=== PATIENT | female | born 1995 ===

== ENCOUNTER 2018-09-27 16:34 | Emergency (ER) | payer OTHER, SELFPAY ==
[2018-09-27 17:01] VITALS: PULSE 89; RESP 12; O2SAT 98
[2018-09-27] MEDS: ALBUTEROL/IPRATROPIUM 3 ML AMPUL INH (17:01)
[2018-09-27 17:02] VITALS: BP 110/65; PULSE 94; RESP 24; TEMP 37.3; O2SAT 96; BMI 25.7
--- NOTE | 2018-09-27 17:04 | PC.NURSE ---
breath sound with ins/exp wheezes. skin warm dry pink
[2018-09-27] MEDS: ALBUTEROL 2.5 MG/3 ML NEB (ADULT) INH ×3 (17:13→17:33)
[2018-09-27 17:33] VITALS: PULSE 105; RESP 14; O2SAT 98
--- NOTE | 2018-09-27 17:34 | DI.RAD.S_ITS ---
PROCEDURE: XR CHEST 2V INDICATIONS: Cough, SOB TECHNIQUE: 2 views of the chest were acquired. COMPARISON: None. FINDINGS: Surgical changes and devices: None. Lungs and pleura: No pleural effusions or pneumothorax. Central interstitial prominence is seen. No consolidated infiltrates are seen. Mediastinum: Mediastinal contours are normal. Heart size is normal. Bones and chest wall: No suspicious bony abnormalities. Mild dextroconvex scoliotic curvature is seen. Soft tissues appear unremarkable. IMPRESSION: Interstitial prominence is seen throughout. The interstitial prominence is nonspecific, yet may be related to pulmonary edema, asthma, or atypical infiltrates. Dictated by: Oliver Rivero M.D. on 09/27/2018 at 17:03 Approved by: Oliver Rivero M.D. on 09/27/2018 at 17:04
--- NOTE | 2018-09-27 17:37 | ED_ITS ---
HPI - URI/Sore Throat <Kate Calderón PA-C - Last Filed: 09/27/18 22:06> General Chief Complaint: Upper Respiratory Symptoms Stated Complaint: HARD TIME BREATHING Time Seen by Provider: 09/27/18 17:36 Source: patient Mode of arrival: ambulatory Limitations: no limitations History of Present Illness HPI Narrative: This generally healthy 23-year-old female has had cold and cough symptoms that started 6-8 weeks ago. She states that she had congestion and dry cough that has been waxing and waning since then, thought it would get better on its own. She states that she has had some intermittent difficulty breathing, which she describes as it being hard to inhaler take a deep breath and feeling like it would make her cough. She has had some slight chest pain at times, none currently. She states that she was walking in a small area at work today and felt short of breath and started wheezing. She did not want to come in but her partner brought her. She states that she had some chills earlier on but none today. No known fever. She states that her back feels somewhat sore at times since this started. She has had increased fatigue and less appetite. She denies any abdominal symptoms, new pain or swelling in her extremities, or other new complaints. She states that she did have an episode of exercise-induced asthma 6 or 7 years ago but has not had problems with that since. She denies any recent travel. Coworkers have been sick but got better since onset of her symptoms. She states that she is feeling better after nebulizer treatment Related Data Previous Rx's Medication Instructions Recorded azithromycin 250 mg PO DAILY 4 Days tab 09/27/18 prednisone 20 mg PO DAILY #8 tab 09/27/18 Allergies Allergy/AdvReac Type Severity Reaction Status Date / Time No Known Drug Allergies Allergy Verified 09/27/18 17:36 Review of Systems <Kate Calderón PA-C - Last Filed: 09/27/18 22:06> Review of Systems All systems reviewed & are unremarkable except as noted in HPI and below PFSH <Kate Calderón PA-C - Last Filed: 09/27/18 22:06> Comment: Rare EtOH, no street drugs Exam <CLARK Mathur Last Filed: 09/27/18 22:06> Narrative Exam Narrative: GENERAL APPEARANCE: Patient sitting comfortably, in no distress. HEAD: No sinus TTP. EYES: PERRL, EOMI. EARS: Normal auditory canals, TMS intact with normal light reflexes. ORAL CAVITY: Normal oropharynx. THROAT: Clear. NECK/THYROID: Neck supple, full range of motion, few small anterior cervical nodes LUNGS: Congested breath sounds with generalized wheeze, no cough on exam. HEART: RRR without murmur, nl S1, S2, no S3 or S4. EXTREMITIES: No cyanosis, no edema, no calf tenderness Initial Vital Signs Initial Vital Signs: Vital Signs Pulse Rate 89 09/27/18 17:01 Respiratory Rate 12 09/27/18 17:01 Pulse Oximetry 98 09/27/18 17:01 <Tyshawn Mohr DO - Last Filed: 09/28/18 14:57> Initial Vital Signs Initial Vital Signs: Vital Signs Pulse Rate 89 09/27/18 17:01 Respiratory Rate 12 09/27/18 17:01 Pulse Oximetry 98 09/27/18 17:01 Course <Kate Calderón PA-C - Last Filed: 09/27/18 22:06> Additional Information: Patient still has wheeze after nebulizer treatments but is moving air and feels subjectively improved. Findings most consistent with atypical pneumonia. Reviewed with Dr. Mohr as her lactase is a bit elevated as well. Agrees outpatient treatment is reasonable given that she is a healthy young nonsmoker. Initial doses of medication given tonight and she will continue these tomorrow. Remain off of work and reassess in a few days to determine whether to continue any steroids. She agreed to return again if any acutely worsening symptoms Orders Ordered: Discontinued Medications Albuterol (Ventolin) 2.5 mg INH NOW PRN PRN Reason: Wheezing Last Admin: 09/27/18 17:33 Dose: 2.5 mg Admin: 09/27/18 17:25 Dose: 2.5 mg Admin: 09/27/18 17:13 Dose: 2.5 mg Albuterol/Ipratropium (Duoneb) 3 ml INH NOW ONE Stop: 09/27/18 17:00 Last Admin: 09/27/18 17:01 Dose: 3 ml Azithromycin (Zithromax) 500 mg PO NOW ONE Stop: 09/27/18 19:42 Last Admin: 09/27/18 19:46 Dose: 500 mg Prednisone (Deltasone) 40 mg PO NOW ONE Stop: 09/27/18 18:55 Last Admin: 09/27/18 19:00 Dose: 40 mg Vital Signs - 8 hr 09/27/18 17:01 09/27/18 17:02 09/27/18 17:33 Temperature 99.2 F Pulse Rate 89 94 H 105 H Respiratory Rate 12 24 14 Blood Pressure 110/65 Blood Pressure [Left Arm] Pulse Oximetry 98 96 98 09/27/18 19:33 Temperature Pulse Rate 108 H Respiratory Rate 15 Blood Pressure Blood Pressure [Left Arm] 106/65 Pulse Oximetry 98 <Tysahwn Mohr DO - Last Filed: 09/28/18 14:57> Orders Ordered: Discontinued Medications Albuterol (Ventolin) 2.5 mg INH NOW PRN PRN Reason: Wheezing Last Admin: 09/27/18 17:33 Dose: 2.5 mg Admin: 09/27/18 17:25 Dose: 2.5 mg Admin: 09/27/18 17:13 Dose: 2.5 mg Albuterol/Ipratropium (Duoneb) 3 ml INH NOW ONE Stop: 09/27/18 17:00 Last Admin: 09/27/18 17:01 Dose: 3 ml Azithromycin (Zithromax) 500 mg PO NOW ONE Stop: 09/27/18 19:42 Last Admin: 09/27/18 19:46 Dose: 500 mg Prednisone (Deltasone) 40 mg PO NOW ONE Stop: 09/27/18 18:55 Last Admin: 09/27/18 19:00 Dose: 40 mg Vital Signs - 8 hr 09/27/18 17:01 09/27/18 17:02 09/27/18 17:33 Temperature 99.2 F Pulse Rate 89 94 H 105 H Respiratory Rate 12 24 14 Blood Pressure 110/65 Blood Pressure [Left Arm] Pulse Oximetry 98 96 98 09/27/18 19:33 Temperature Pulse Rate 108 H Respiratory Rate 15 Blood Pressure Blood Pressure [Left Arm] 106/65 Pulse Oximetry 98 MDM - URI/Sore Throat <Kate Calderón PA-C - Last Filed: 09/27/18 22:06> Lab Data Attestation: I reviewed the patient's lab results. Result diagrams: 09/27/18 18:25 09/27/18 18:25 Lab Results 09/27/18 09/27/18 09/27/18 Range/Units 18:25 18:25 18:25 WBC 15.1 H (4.5-11.0) X10^3/uL RBC 4.46 (4.0-5.2) X10^6/uL Hgb 12.9 (12.0-16.0) g/dL Hct 37.8 (36-46) % MCV 84.8 (80-100) fL MCH 28.8 (26-34) PG MCHC 34.0 (30-36) % RDW 13.1 (11.6-14.8) % Plt Count 252 (150-400) X10^3/uL Neut % (Auto) 73.3 (50-75) % Lymph % (Auto) 14.8 L (25-40) % [place] % (Auto) 6.1 (3-14) % Eos % (Auto) 5.4 H (2-4) % Baso % (Auto) 0.4 (0-2) % Neut # (Auto) 37743 H (2513-4848) /uL D-Dimer < 200 (<230) ng/mL Sodium 143 (137-145) mmol/L Potassium 3.6 (3.4-5.1) mmol/L Chloride 107 (98-107) mmol/L Carbon Dioxide 23 (22-32) mmol/L BUN 12 (7-17) mg/dL Creatinine 0.60 (0.52-1.04) mg/dL Estimated GFR > 60.0 (>60) mL/min BUN/Creatinine Ratio 20.0 (6-22) Glucose 111 H (70-100) mg/dL Lactate (0.7-2.1) mmol/L Calcium 8.5 (8.4-10.2) mg/dL B-Natriuretic Peptide (<100) 09/27/18 09/27/18 Range/Units 18:25 18:25 WBC (4.5-11.0) X10^3/uL RBC (4.0-5.2) X10^6/uL Hgb (12.0-16.0) g/dL Hct (36-46) % MCV (80-100) fL MCH (26-34) PG MCHC (30-36) % RDW (11.6-14.8) % Plt Count (150-400) X10^3/uL Neut % (Auto) (50-75) % Lymph % (Auto) (25-40) % [place] % (Auto) (3-14) % Eos % (Auto) (2-4) % Baso % (Auto) (0-2) % Neut # (Auto) (6433-8233) /uL D-Dimer (<230) ng/mL Sodium (137-145) mmol/L Potassium (3.4-5.1) mmol/L Chloride (98-107) mmol/L Carbon Dioxide (22-32) mmol/L BUN (7-17) mg/dL Creatinine (0.52-1.04) mg/dL Estimated GFR (>60) mL/min BUN/Creatinine Ratio (6-22) Glucose (70-100) mg/dL Lactate 2.4 H (0.7-2.1) mmol/L Calcium (8.4-10.2) mg/dL B-Natriuretic Peptide < 100.0 (<100) Imaging Data Chest x-ray: Radiologist's impression: [place] [address] XRay Report Signed Patient: ZONIA MENSAH [facility]#: [id number] : 1995Acct:[id number] Age/Sex: 23 / FDate of Service: 09/27/18 Loc: ED Accession Number: [id number] Procedure: XR chest 2V Ordering Provider: Kate Calderón P.A-C PROCEDURE: XR CHEST 2V INDICATIONS: Cough, SOB TECHNIQUE: 2 views of the chest were acquired. COMPARISON: None. FINDINGS: Surgical changes and devices: None. Lungs and pleura: No pleural effusions or pneumothorax. Central interstitial prominence is seen. No consolidated infiltrates are seen. Mediastinum: Mediastinal contours are normal. Heart size is normal. Bones and chest wall: No suspicious bony abnormalities. Mild dextroconvex scoliotic curvature is seen. Soft tissues appear unremarkable. IMPRESSION: Interstitial prominence is seen throughout. The interstitial prominence is nonspecific, yet may be related to pulmonary edema, asthma, or atypical infiltrates. Dictated by: Oliver Rivero M.D. on 09/27/2018 at 17:03 Approved by: Oliver Rivero M.D. on 09/27/2018 at 17:04 <Tyshawn Mohr DO - Last Filed: 09/28/18 14:57> Lab Data Lab Results 09/27/18 09/27/18 09/27/18 Range/Units 18:25 18:25 18:25 WBC 15.1 H (4.5-11.0) X10^3/uL RBC 4.46 (4.0-5.2) X10^6/uL Hgb 12.9 (12.0-16.0) g/dL Hct 37.8 (36-46) % MCV 84.8 (80-100) fL MCH 28.8 (26-34) PG MCHC 34.0 (30-36) % RDW 13.1 (11.6-14.8) % Plt Count 252 (150-400) X10^3/uL Neut % (Auto) 73.3 (50-75) % Lymph % (Auto) 14.8 L (25-40) % [place] % (Auto) 6.1 (3-14) % Eos % (Auto) 5.4 H (2-4) % Baso % (Auto) 0.4 (0-2) % Neut # (Auto) 04329 H (8348-5135) /uL D-Dimer < 200 (<230) ng/mL Sodium 143 (137-145) mmol/L Potassium 3.6 (3.4-5.1) mmol/L Chloride 107 (98-107) mmol/L Carbon Dioxide 23 (22-32) mmol/L BUN 12 (7-17) mg/dL Creatinine 0.60 (0.52-1.04) mg/dL Estimated GFR > 60.0 (>60) mL/min BUN/Creatinine Ratio 20.0 (6-22) Glucose 111 H (70-100) mg/dL Lactate (0.7-2.1) mmol/L Calcium 8.5 (8.4-10.2) mg/dL B-Natriuretic Peptide (<100) 09/27/18 09/27/18 Range/Units 18:25 18:25 WBC (4.5-11.0) X10^3/uL RBC (4.0-5.2) X10^6/uL Hgb (12.0-16.0) g/dL Hct (36-46) % MCV (80-100) fL MCH (26-34) PG MCHC (30-36) % RDW (11.6-14.8) % Plt Count (150-400) X10^3/uL Neut % (Auto) (50-75) % Lymph % (Auto) (25-40) % [place] % (Auto) (3-14) % Eos % (Auto) (2-4) % Baso % (Auto) (0-2) % Neut # (Auto) (0024-2595) /uL D-Dimer (<230) ng/mL Sodium (137-145) mmol/L Potassium (3.4-5.1) mmol/L Chloride (98-107) mmol/L Carbon Dioxide (22-32) mmol/L BUN (7-17) mg/dL Creatinine (0.52-1.04) mg/dL Estimated GFR (>60) mL/min BUN/Creatinine Ratio (6-22) Glucose (70-100) mg/dL Lactate 2.4 H (0.7-2.1) mmol/L Calcium (8.4-10.2) mg/dL B-Natriuretic Peptide < 100.0 (<100) Discharge Plan Departure Patient Disposition: Home Clinical Impression: Atypical pneumonia, Asthma Discharge Date/Time: 09/27/18 19:55 Interventions: ED Discharge Assessment Last Done: 09/27/18 19:55 Instructions: DI for Atypical Pneumonia Activity Restrictions/Additional Instructions: Please return as we talked about if you have acutely worsening symptoms. Please use your inhaler as often as needed. Take your 2nd dose of steroids and antibiotics tomorrow and continue these over the weekend. Follow up with your primary care provider on Monday to assess your progress and determine whether you need to continue steroids. Remain off of work until then. Prescriptions: New azithromycin 250 mg tablet 250 mg PO DAILY 4 Days RF: 0 prednisone 20 mg tablet 20 mg PO DAILY Qty: 8 RF: 0 Referrals: [facility] [Provider Group] Stand Alone Forms: Work/School Restrictions <Tyshawn Mohr DO - Last Filed: 09/28/18 14:57> Cosign ED Attending Madanature Attestation: I was immediately available in the department for consultation. Documentation has been reviewed. I agree with assessment and plan.
[2018-09-27 18:36] LABS: Add Manual Diff / Slide Review NO; Basophils Percent Auto 0.4 % (0-2); Eosinophils Percent Auto 5.4 % (2-4); Hematocrit 37.8 % (36-46); Hemoglobin 12.9 g/dL (12.0-16.0); Lymphocytes Percent Auto 14.8 % (25-40); Mean Corpuscular Hemoglobin 28.8 PG (26-34); Mean Corpuscular Volume 84.8 fL (80-100); Monocytes Percent Auto 6.1 % (3-14); Neutrophils Absolute Auto 11100 /uL (3000-5900); Neutrophils Percent Auto 73.3 % (50-75); Platelet Count 252 X10^3/uL (150-400); Red Blood Cell Count 4.46 X10^6/uL (4.0-5.2); Red Cell Distribution Width 13.1 % (11.6-14.8); White Blood Cell Count 15.1 X10^3/uL (4.5-11.0)
[2018-09-27 18:45] LABS: Lactate (Lactic Acid) 2.4 mmol/L (0.7-2.1)
[2018-09-27 18:46] LABS: Blood Urea Nitrogen 12 mg/dL (7-17); Calcium 8.5 mg/dL (8.4-10.2); Carbon Dioxide 23 mmol/L (22-32); Chloride 107 mmol/L (98-107); Estimated Glomerular Filt Rate > 60.0 mL/min (>60); Glucose 111 mg/dL (70-100); HEMOLYSIS < 15 (0-50); Potassium 3.6 mmol/L (3.4-5.1); Sodium 143 mmol/L (137-145)
[2018-09-27 18:47] LABS: D Dimer < 200 ng/mL (<230)
[2018-09-27] MEDS: predniSONE 20 MG TABLET 40 MG PO (19:00)
[2018-09-27 19:02] LABS: B Type Natriuretic Peptide < 100.0 (<100)
[2018-09-27 19:33] VITALS: BP 106/65; PULSE 108; RESP 15; O2SAT 98
[2018-09-27] MEDS: AZITHROMYCIN 250 MG TABLET 500 MG PO (19:46)
[2018-09-27 22:31] LABS: Reflexed Lactate in 2 Hours Y
== END 2018-09-27 19:55 | disposition home or self-care (01) ==
PROVIDERS: Emergency Provider Internal Medicine; PCP Physician Assistant Medical
DX: J18.9 Pneumonia, unspecified organism (principal); J45.909 Unspecified asthma, uncomplicated
CPT/HCPCS: 71046; 80048; 83605; 83880; 85025; 85379; 94640; 99282; 99284; J7613

== ENCOUNTER 2018-10-28 14:36 | Emergency (ER) | payer OTHER, SELFPAY ==
[2018-10-28 14:41] VITALS: BP 122/73; PULSE 90; RESP 20; TEMP 37.1; O2SAT 94; BMI 25.4
[2018-10-28 15:08] VITALS: PULSE 78; RESP 14; O2SAT 98
[2018-10-28] MEDS: ALBUTEROL/IPRATROPIUM 3 ML AMPUL INH (15:08)
--- NOTE | 2018-10-28 15:09 | ED.SOB ---
HPI - SOB/Dyspnea General Chief Complaint: Shortness of Breath/Dyspnea Stated Complaint: cough, back muscles tight, labored breathing, whee Time Seen by Provider: 10/28/18 15:06 Source: patient Mode of arrival: ambulatory Limitations: no limitations History of Present Illness Patient is a 23-year-old female who presents with chest tightness and shortness of breath. She was diagnosed with atypical pneumonia a month ago. She was given albuterol that time however she ran out a few days ago. She has no known history of asthma. This time she says she denies any fever or productive cough. Related Data Home Medications Medication Instructions Recorded Confirmed No Known Home Medications 10/28/18 10/28/18 Previous Rx's Medication Instructions Recorded albuterol sulfate 2 puff INHALATION Q6H PRN #8.5 gram 10/28/18 prednisone 50 mg PO DAILY #5 tab 10/28/18 Allergies Allergy/AdvReac Type Severity Reaction Status Date / Time No Known Drug Allergies Allergy Verified 10/28/18 14:45 Review of Systems Review of Systems All systems reviewed & are unremarkable except as noted in HPI and below Constitutional Denies chills, Denies fever(s), Denies lethargy and Denies weakness Cardiovascular Reports chest pain (Tightness), Denies syncope, Denies rapid heart rate and Denies dyspnea on exertion Respiratory Reports as per HPI, Denies change in phlegm color, Denies pain with cough, Denies dyspnea on exertion and Denies wheezing Gastrointestinal Gastrointestinal: Denies abdominal pain, Denies change in bowel habits, Denies diarrhea, Denies nausea and Denies vomiting Musculoskeletal Denies back pain, Denies muscle weakness, Denies numbness and Denies tingling Integumentary/Breasts Denies pruritus, Denies erythema, Denies rash and Denies wounds Neurologic Denies syncope, Denies numbness, Denies tingling and Denies weakness Allergic/Immunologic Denies wheezing PFSH Medical History Mild exercise-induced asthma (Chronic) No significant past surgical history (Chronic) Social History Smoking Status: Never smoker Exam Initial Vital Signs Initial Vital Signs: Vital Signs Temperature 98.8 F 10/28/18 14:41 Pulse Rate 90 10/28/18 14:41 Respiratory Rate 20 10/28/18 14:41 Blood Pressure 122/73 10/28/18 14:41 Pulse Oximetry 94 10/28/18 14:41 GENERAL: Young healthy female alert oriented no acute distress HEENT: Head atraumatic,EOMI, pupils reactive, CARDIOVASCULAR: Regular rate and rhythm without murmurs, rubs or gallops. RESPIRATORY: Speaking in full sentences wheezing bilaterally no intercostal retractions ABDOMEN: Soft, nontender. Normoactive bowel sounds all 4 quadrants. No guarding or rebound. EXTREMITIES: Normal range of motion, no clubbing or edema. Neurovascularly intact NEUROLOGICAL: Alert and oriented x4.Normal gait and speech. Cranial nerves II through XII grossly intact. SKIN: Warm, dry, no laceration, no petechiae, no rashes or lesions. Course Orders Ordered: Discontinued Medications Albuterol (Ventolin) 2.5 mg INH NOW ONE Stop: 10/28/18 15:18 Last Admin: 10/28/18 15:18 Dose: 2.5 mg Albuterol/Ipratropium (Duoneb) 3 ml INH NOW ONE Stop: 10/28/18 15:08 Last Admin: 10/28/18 15:08 Dose: 3 ml Vital Signs - 8 hr 10/28/18 14:41 10/28/18 15:08 Temperature 98.8 F Pulse Rate 90 78 Respiratory Rate 20 14 Blood Pressure 122/73 Pulse Oximetry 94 98 MDM - SOB/Dyspnea MDM Narrative Medical decision making narrative: Patient overall is feeling better. She ran out of her albuterol inhaler, and also recommend further testing at if she truly does have asthma she may require other inhalers to help control her asthma. She states that she does wake up at least once a week coughing at night. Discharge Plan Departure Patient Disposition: Home Clinical Impression: Bronchitis Discharge Date/Time: 10/28/18 16:01 Interventions: ED Discharge Assessment Last Done: 10/28/18 16:00 Instructions: Acute Bronchitis Activity Restrictions/Additional Instructions: *You have been diagnosed with bronchitis *What to do: May need further testing for any asthma. At this time no antibiotics are needed. *Continue to take medications as directed:[facility]XED TO [facility] [employer] [facility] Albuterol 1-2 puffs with spacer every 4 hr if needed for difficulty breathing *Follow up with your primary care provider in 2-3 days *Return to ER if you should have chest tightness difficulty breathing shortness of breath or any new, worsening or concerning symptoms Prescriptions: New prednisone 50 mg tablet 50 mg PO DAILY Qty: 5 RF: 0 albuterol sulfate 90 mcg/actuation HFA aerosol inhaler 2 puff INHALATION Q6H PRN (Reason: shortness of breath) Qty: 8.5 RF: 0 No Action No Known Home Medications RF: 0 Referrals: Deborah Cowart [Primary Care Provider] -
[2018-10-28 15:18] VITALS: PULSE 85; RESP 14; O2SAT 98
[2018-10-28] MEDS: ALBUTEROL 2.5 MG/3 ML NEB (ADULT) INH (15:18)
[2018-10-28 16:00] VITALS: BP 103/73; PULSE 104; RESP 20; TEMP 37.2; O2SAT 95
== END 2018-10-28 16:01 | disposition home or self-care (01) ==
PROVIDERS: Emergency Provider Emergency Medicine; PCP Physician Assistant Medical
DX: J40 Bronchitis, not specified as acute or chronic (principal)
CPT/HCPCS: 94640; 99282; 99283; J7613